=== PATIENT | male | born 1950 | race Caucasian/White ===

== ENCOUNTER 2023-12-12 11:15 | Emergency (ER) | payer MEDICARE, BC ==
[~2023-12-12] VITALS: Ht 182.9 cm; Wt 72.6 kg
[2023-12-12 11:28] VITALS: O2SAT 98
[2023-12-12] MEDS ORDERED: SITA100T PO (11:41)
[2023-12-12] MEDS ORDERED: GLIM2TAB31 PO (11:41)
[2023-12-12] MEDS ORDERED: PREDNISONE EACHEYE (11:41)
[2023-12-12] MEDS ORDERED: CLOP75TA33 PO (11:41)
[2023-12-12] MEDS ORDERED: VALS80TA2 PO (11:41)
[2023-12-12] MEDS ORDERED: ATOR80TA PO (11:41)
[2023-12-12] MEDS ORDERED: [UNRECOGNIZED DRUG - OTHER] EACHEYE (11:41)
[2023-12-12 12:25] LABS: BASOPHILS % (AUTO) 0.6 % (0.0-2.0); DIFFERENTIAL COMMENT 1; EOSINOPHILS # (AUTO) 0.2 K/uL (0.0-0.7); EOSINOPHILS % (AUTO) 1.8 % (0.0-7.0); HEMATOCRIT 38.6 % (36.7-47.1); HEMOGLOBIN 13.2 g/dL (12.5-16.3); LYMPHOCYTES # (AUTO) 1.6 K/uL (0.8-4.8); LYMPHOCYTES % (AUTO) 18.7 % (20.5-51.5); MEAN CORPUSCULAR HEMOGLOBIN 30.3 uug (23.8-33.4); MEAN CORPUSCULAR HGB CONC 34 g/dL (32.5-36.3); MEAN CORPUSCULAR VOLUME 88.4 fL (73.0-96.2); MONOCYTES # (AUTO) 0.5 K/uL (0.1-1.30); MONOCYTES % (AUTO) 6.1 % (0.0-11.0); NEUTROPHILS # (AUTO) 6.3 K/uL (1.8-8.9); NEUTROPHILS % (AUTO) 72.8 % (38.5-71.5); PLATELET COUNT (AUTO) 295 K/uL (152-348); RED BLOOD CELL COUNT(AUTO) 4.37 MIL/uL (4.06-5.63); RED CELL DISTRIBUTION WIDTH 13.4 % (12.1-16.2); WHITE BLOOD COUNT (AUTO) 8.7 K/uL (3.6-10.2)
[2023-12-12 12:29] LABS: CALCIUM 8.5 mg/dL (8.5-10.1); POTASSIUM 3.9 mmol/L (3.5-5.1)
== END 2023-12-12 13:51 | disposition home or self-care (01) ==
LOC: ER 11:21
DX: K64.4 Residual hemorrhoidal skin tags (principal); Z98.890 Other specified postprocedural states; Z79.899 Other long term (current) drug therapy
CPT/HCPCS: 99283; 80048; 85025; 36415; J7040; A4606; A4663